=== PATIENT | male | born 1940 | race African-American/Black ===

== ENCOUNTER 2016-07-14 18:42 | Inpatient (IN) | payer OTHER, MEDICARE ==
[2016-07-14] MEDS ORDERED: SODIUM CHLORIDE 0.9% 1000 ML INFUS.BAG IV ONE (19:29)
--- NOTE | 2016-07-14 19:29 | PDOC ---
History of Present Illness - General History Source: Family <Angel Singletary - Last Filed: 07/14/16 22:24> - General History Source: Patient, Family Exam Limitations: No Limitations - History of Present Illness Initial Comments: 07/14/16 19:38 The patient is a 76 year old male with significant past medical history of hypertension and diabetes who presents to the ED with AMD prior to arrival. As per family member, at bedside, patients last known well was earlier this morning. However, later on the evening, patient was found on the floor and appeared confused. Upon arrival, patients vitals were checked and he was found to have a temp of 103.1. At time of evaluation, patient appears to be awake, alert, and answering questions slowly, but appropriately and states he does not have any complaints. The patient denies chills, cough, SOB, chest pain, and palpitations. The patient denies abdominal pain, nausea, vomiting, and diarrhea. Allergies: NKDA Social History: No alcohol, tobacco, or drug use reported. Past Surgical History: None reported PCP: Dr. Boogie Sterling <Cassie Cuellar - Last Filed: 07/15/16 04:06> - General Chief Complaint: SIRS, Suspected/Possible Stated Complaint: FALL/AMS Time Seen by Provider: 07/14/16 19:26 Past History - Past Medical History Diabetes: Yes (niddm) HTN: Yes - Psycho/Social/Smoking Cessation Hx Anxiety: No Suicidal Ideation: No Smoking History: Never smoked Have you smoked in the past 12 months: No Information on smoking cessation initiated: No Hx Alcohol Use: No Drug/Substance Use Hx: No Substance Use Type: None <Angel Singletary - Last Filed: 07/14/16 22:24> <Cassie Cuellar - Last Filed: 07/15/16 04:06> - Past Medical History Allergies/Adverse Reactions: Allergies Allergy/AdvReac Type Severity Reaction Status Date / Time No Known Allergies Allergy Verified 07/14/16 18:49 Home Medications: Ambulatory Orders Atenolol [Tenormin -] 100 mg PO DAILY 07/15/16 Furosemide [Lasix] 40 mg PO DAILY 07/15/16 Nefazodone HCl 30 mg PO DAILY 07/15/16 Review of Systems - Review of Systems Able to Perform ROS?: Yes Comments:: 07/14/16 19:38 CONSTITUTIONAL: +fever Absent: no chills, no fatigue EYES: Absent: visual changes ENT: Absent: ear pain, no sore throat CARDIOVASCULAR: Absent: chest pain, no palpitations RESPIRATORY: Absent: cough, no SOB GI: Absent: abdominal pain, no nausea, no vomiting, no constipation, no diarrhea GENITOURINARY: Absent: dysuria, no frequency, no hematuria MUSKULOSKELETAL: Absent: back pain, no arthralgia, no myalgia SKIN: Absent: rash NEURO: +AMS Absent: headache <Cassie Cuellar - Last Filed: 07/15/16 04:06> *Physical Exam - Vital Signs Last Vital Signs Temp Pulse Resp BP Pulse Ox 103.1 F H 90 18 151/92 95 07/14/16 18:51 07/14/16 18:51 07/14/16 18:51 07/14/16 18:51 07/14/16 18:51 <Angel Singletary - Last Filed: 07/14/16 22:24> - Vital Signs Last Vital Signs Temp Pulse Resp BP Pulse Ox 103.1 F H 90 18 151/92 95 07/14/16 18:51 07/14/16 18:51 07/14/16 18:51 07/14/16 18:51 07/14/16 18:51 - Physical Exam Comments: 07/14/16 19:38 GENERAL: Well-appearing, well-nourished. No apparent distress. HEENT: Normocephalic, atraumatic. No racoon or kelly sign. PERRL, EOM intact. No hemotympanum. CARDIOVASCULAR: Normal S1, S2. Regular rate and rhythm. PULMONARY: Clear to auscultation bilaterally. ABDOMEN: Soft, non-distended, non-tender. EXTREMITIES: Normal ROM in all four extremities. No gross deformities. SKIN: Warm, dry. No rash NEUROLOGICAL: Pt is awake, alert, and answering questions slowly, but appropriately. No gross focal neurological deficits. <PoloCassie - Last Filed: 07/15/16 04:06> Heart Score/ECG Review - ECG Impressions Comment:: 07/15/16 04:05 Sinus rhythm with sinus arrhythmia with 1st degree AV block @69bpm Left anterior fascicular block Voltage criteria for left ventricular hypertrophy Abnormal ECG <Cassie Cuellar - Last Filed: 07/15/16 04:06> ED Treatment Course - LABORATORY CBC & Chemistry Diagram: 07/14/16 19:30 07/14/16 19:30 <Angel Singletary - Last Filed: 07/14/16 22:24> - LABORATORY CBC & Chemistry Diagram: 07/14/16 19:30 07/14/16 19:30 <Cassie Cuellar - Last Filed: 07/15/16 04:06> Medical Decision Making - Medical Decision Making 07/14/16 22:24 Dr. Singletary: The scribe's documentation has been prepared under my direction and personally reviewed by me in its entirery. I confirm that the note above accurately reflects all work, treatment, procedures, and medical decision making performed by me. Pt [facility] be [facility]. Spoke to Dr. Cronin for Dr Kelvin Sterling <Angel Singletary - Last Filed: 07/14/16 22:24> - Medical Decision Making 07/14/16 22:[address] Maribell Cronin covering for Boogie Sterling (via answering service) at 22:18 Awaiting call back Patient's case was discussed with Dr. Cronin at 22:20 <Cassie Cuellar - Last Filed: 07/15/16 04:06> *DC/Admit/Observation/Transfer - Discharge Dispostion Admit: Yes <Angel Singletary - Last Filed: 07/14/16 22:24> - Attestations Scribe Attestion: 07/14/16 19:38 Documentation prepared by Cassie Cuellar, acting as medical stenographer for Angel Singletary MD <Cassie Cuellar - Last Filed: 07/15/16 04:06> Diagnosis at time of Disposition: Influenza A Change in mental status Qualifiers: Altered mental status type: unspecified Qualified Code(s): R41.82 - Altered mental status, unspecified - Referrals
[2016-07-14] MEDS ORDERED: ACETAMINOPHEN 1000 MG/100 ML VIAL (NON FORMULARY) IVPB ONE (19:30)
[2016-07-14] MEDS ORDERED: ACETAMINOPHEN INJECTION 100 ML IVPB ONE (19:49)
[2016-07-14 19:50] LABS: VENOUS PH 7.41 (7.31-7.41)
[2016-07-14 19:53] LABS: RDW 14.6 % (11.9-15.9)
[2016-07-14 19:59] LABS: MCH 30.3 pg (25.7-33.7); MCHC 33.2 g/dl (32.0-35.9); MEAN CELL VOLUME 91.1 fl (80-96); MEAN PLT VOLUME 9.5 fl (7.5-11.1); PLATELET COUNT 133 K/MM3 (134-434); WHITE BLOOD COUNT 5.6 K/mm3 (4.0-10.0)
[2016-07-14 20:06] LABS: INR 1.11 (0.82-1.09); PROTHROMBIN TIME (PATIENT) 12.2 SEC (9.98-11.88)
[2016-07-14 20:28] LABS: ALBUMIN 3.8 g/dl (3.4-5.0); BILIRUBIN,TOTAL 0.7 mg/dL (0.2-1.0); CALCIUM 8.9 mg/dL (8.5-10.1); CREATININE 2.3 mg/dL (0.7-1.3); TOT PROT 7.4 g/dl (6.4-8.2)
[2016-07-14 20:30] LABS: TROPONIN I 0.04 ng/ml (0.00-0.05)
[2016-07-14] MEDS ORDERED: OSELTAMIVIR PHOSPHATE 75 MG CAPSULE PO ONE (20:35)
[2016-07-14 20:49] LABS: PLATELET COMMENT2 NO CLUMPING NOTED; PLATELET ESTIMATE DECREASED (NORMAL)
[2016-07-14] MEDS ORDERED: OSELTAMIVIR PHOSPHATE 75 MG CAPSULE ONE (21:04)
[2016-07-14] MEDS ORDERED: ALBUTEROL SO4 0.083% IH SOL 2.5 MG/3 ML VIAL.NEB. NEB PRN (22:49)
[2016-07-14] MEDS ORDERED: ACETAMINOPHEN 325 MG TABLET (FP) PO PRN (22:52)
[2016-07-14] MEDS ORDERED: SODIUM CHLORIDE 0.45% 1,000 ML IV SCH (23:00)
[2016-07-15] MEDS ORDERED: KETOROLAC TROMETHAMINE 30 MG/1 ML VIAL IVPUSH ONE (00:04)
[2016-07-15] MEDS ORDERED: KETOROLAC TROMETHAMINE 30 MG/1 ML VIAL ONE (00:06)
[2016-07-15] MEDS ORDERED: ACETAMINOPHEN 1000 MG/100 ML VIAL (NON FORMULARY) IVPB ONE ×2 (05:19→17:01)
[2016-07-15] MEDS ORDERED: ACETAMINOPHEN INJECTION 100 ML IVPB ONE ×2 (05:20→17:02)
[2016-07-15 05:37] LABS: BASOPHIL 1.9 % (0-2.0); EOSINOPHIL 0.6 % (0-4.5); MCH 30.4 pg (25.7-33.7); MEAN CELL VOLUME 92.3 fl (80-96); MEAN PLT VOLUME 9.2 fl (7.5-11.1); NEUTROPHILS 62.8 % (42.8-82.8); PLATELET COUNT 102 K/MM3 (134-434); WHITE BLOOD COUNT 4.5 K/mm3 (4.0-10.0)
[2016-07-15 06:00] LABS: ALBUMIN 3.4 g/dl (3.4-5.0); BILIRUBIN,TOTAL 0.7 mg/dL (0.2-1.0); CALCIUM 8.3 mg/dL (8.5-10.1); CREATININE 2.2 mg/dL (0.7-1.3); TOT PROT 6.5 g/dl (6.4-8.2)
[2016-07-15 08:10] LABS: URINE APPEARANCE CLEAR; URINE BILIRUBIN NEGATIVE (NEGATIVE); URINE COLOR LTYELLOW; URINE GLUCOSE (UA) NEGATIVE (NEGATIVE); URINE KETONE NEGATIVE (NEGATIVE); URINE LEUK ESTERASE NEGATIVE (NEGATIVE); URINE NITRITE NEGATIVE (NEGATIVE); URINE UROBILINOGEN NEGATIVE E.U./dl (0.2-1.0)
[2016-07-15 08:16] LABS: URINE BLOOD 1+ (NEGATIVE); URINE PROTEIN 1+ (NEGATIVE)
[2016-07-15 08:18] LABS: URINE HYALINE CAST 1 /lpf; URINE MUCUS RARE; URINE RBC <1 /hpf (0-3); URINE WBC <1 /hpf (3-5)
[2016-07-15] MEDS: ATENOLOL 50 MG TABLET (FP) PO SCH (09:06)
[2016-07-15] MEDS: NIFEdipine E.R 60 MG TABLET (UD) PO SCH (09:06)
--- NOTE | 2016-07-15 09:08 | HP ---
Admitting History and Physical - Primary Care Physician PCP: Boogie Sterling - Admission Chief Complaint: AMS, cough, fever, syncope History of Present Illness: ER HISTORY - - History of Present Illness Initial Comments: 07/14/16 19:38 The patient is a 76 year old male with significant past medical history of hypertension and diabetes who presents to the ED with AMS prior to arrival. As per family member, at bedside, patients last known well was earlier this morning. However, later on the evening, patient was found on the floor and appeared confused. Upon arrival, patients vitals were checked and he was found to have a temp of 103.1. At time of evaluation, patient appears to be awake, alert, and answering questions slowly, but appropriately and states he does not have any complaints. Pt examined by me in the ER- ID also with me- Known from the office. -76 yrs old male brought in for AMS, confusion, syncope- he was found on the floor last night- states that he hasn't been feeling well for two days-- had body aches, coughing persistently.When he went to the bathroom yesterday in the afternoon, he passed out. Pt is able to give history-- he does not remember how long he was on the floor- his nephew found him on the floor confused and brought him to the ER. Pt states he has runny nose , body aches x 2 days. States that his nephew had a cold before. He was seen in the office 05/27/16 for similar complaints and at office rapid flu test was positive and was started on Tamiflu- pt denies ever being told he had the Flu and also he denies taking medications for the flu even though it is documented that it was prescribed and he came about a week later for follow up . No chest pain ,has poor appetite, no diarrhea History Source: Patient Limitations to Obtaining History: No Limitations - Past Medical History Cardiovascular: Yes: HTN - Smoking History Smoking history: Never smoked Have you smoked in the past 12 months: No - Alcohol/Substance Use Hx Alcohol Use: No - Social History Usual Living Arrangement: Yes: Alone, Other ( in [place]) ADL: Independent History of Recent Travel: No Home Medications - Allergies Allergies/Adverse Reactions: Allergies Allergy/AdvReac Type Severity Reaction Status Date / Time No Known Allergies Allergy Verified 07/14/16 18:49 - Home Medications Home Medications: Ambulatory Orders Atenolol [Tenormin -] 100 mg PO DAILY 07/15/16 Furosemide [Lasix] 40 mg PO DAILY 07/15/16 Nefazodone HCl 30 mg PO DAILY 07/15/16 Review of Systems - Review of Systems Constitutional: reports: Chills, Fever, Loss of Appetite, Weakness Cardiovascular: denies: Chest Pain, Edema, Palpitations, Shortness of Breath Respiratory: reports: Cough Physical Examination Vital Signs: Vital Signs Temperature 98.4 F 07/15/16 09:05 Pulse Rate 74 07/15/16 09:05 Respiratory Rate 18 07/15/16 09:05 Blood Pressure 157/87 07/15/16 09:05 O2 Sat by Pulse Oximetry (%) 97 07/15/16 09:05 Constitutional: Yes: No Distress, Calm HENT: Yes: Other (oral moist) Cardiovascular: Yes: Regular Rate and Rhythm Respiratory: Yes: Diminished Gastrointestinal: Yes: Normal Bowel Sounds, Soft. No: Distention, Tenderness Extremities: Yes: Other (skin dry) Edema: No Neurological: Yes: Alert, Oriented Psychiatric: Yes: Alert, Oriented (answers questions appropriately) Labs: CBC, BMP 07/15/16 05:00 07/15/16 05:00 Imaging - Results Chest X-ray: Image Reviewed (no infilatrate) Cat Scan: Report Reviewed (CT head--negative) EKG: Image Reviewed (NSR, no ST changes) Problem List - Problems (1) Change in mental status Code(s): R41.82 - ALTERED MENTAL STATUS, UNSPECIFIED Qualifiers: Altered mental status type: unspecified Qualified Code(s): R41.82 - Altered mental status, unspecified (2) Influenza A Code(s): J10.1 - FLU DUE TO OTH IDENT INFLUENZA VIRUS W OTH RESP MANIFEST (3) Acute on chronic renal failure Code(s): N17.9 - ACUTE KIDNEY FAILURE, UNSPECIFIED N18.9 - CHRONIC KIDNEY DISEASE, UNSPECIFIED (4) HTN (hypertension) Code(s): I10 - ESSENTIAL (PRIMARY) HYPERTENSION Qualifiers: Hypertension type: essential hypertension Qualified Code(s): I10 - Essential (primary) hypertension Assessment/Plan PLAN -- unknown if pt did take Tamiflu in May -- pt started on tamiflu here -- discussed the case with ID -- droplet precautions -- IV fluids-- pt's baseline creatinine 1.6. -- hold off Lasix -- denies NSAID use -- iv fluids-- repeat lactate is normal -- monitor BUN/creatinine -- check renal sono -- continue meds for HTN -- pt syncopized likely due to dehydration -- DVT prophylaxis-- Heparin sc
--- NOTE | 2016-07-15 09:36 | PN ---
Progress Note (short form) - Note Progress Note: ID consult dictated imp/reccd 76 year old man admitted with acute onset of cough and nasal congestion on Wednesday night, Wednesday he felt extremely weak with continued cough and malaise, he remembers using the bathroom in the evening , then became extremely weak and sat on the floor. He is not sure if he had LOC His grandson (who has a cold) found him on the floor confused and called the ambulance temp of 103 i ED awake and alert no other complaints besides cough influenza A positive influenza A droplet isolation tamiflu adjusted for CKD d/w Dr Cronin
[2016-07-15] MEDS ORDERED: OSELTAMIVIR PHOSPHATE 75 MG CAPSULE PO SCH (10:00)
[2016-07-15] MEDS: OSELTAMIVIR PHOSPHATE 30 MG CAPSULE PO SCH ×2 (10:10→22:34)
[2016-07-15] MEDS: SODIUM CHLORIDE 0.45% 1,000 ML IV SCH (12:20)
--- NOTE | 2016-07-15 13:46 | CONS ---
DATE OF CONSULTATION: DATE OF DICTATION: 07/15/2016 REQUESTING PHYSICIAN: HISTORY OF PRESENT ILLNESS: This is a 76-year-old man with a past medical history of hypertension and diabetes. The patient was found by his grandson yesterday evening on the floor in his bedroom, and he appeared confused. EMS was called, and he was brought to the emergency room where he had a temperature of 103.1. By the time he got to the emergency room, he was awake and alert and answering questions slowly, but appropriately and did not have any complaints. He had blood cultures drawn, his labs were notable for a normal white count, he had no other complaints, and his influenza A screen was positive. On further questioning this morning, he reports that from the prior evening, he developed sudden onset of nasal congestion and cough. He said he had this nonproductive cough and could not stop coughing all night. The next morning when he awoke, which was yesterday morning, he was extremely weak and fatigued. He went to use the bathroom in the evening, and returning back to his room, he essentially could not make it from the weakness and was found on the floor by his son. He has no other memories of the event. He denies any nausea, vomiting, diarrhea, or dysuria. There is no history of any travel. His grandson, who lives with him, has recently had a cold. ALLERGIES: He has no known drug allergies. MEDICATIONS: He takes atenolol, Lasix, and nefazodone as an outpatient. FAMILY HISTORY: Noncontributory. SOCIAL HISTORY: He is . His is currently down in [place]. He did not go to visit her. 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 He is a nonsmoker. REVIEW OF SYSTEMS: He denies fevers and chills, although he had fever in the emergency room. He does note this cough and he has nasal congestion. PAST MEDICAL HISTORY: Notable for diabetes and hypertension. SURGICAL HISTORY: Is negative. PHYSICAL EXAMINATION: Vital signs: Maximum temperature was 103.1, current temperature is 98.4, pulse is 74, blood pressure 157/87, respiratory rate 18, he is saturating 97% on room air. HEENT: He is normocephalic. His eyes are anicteric. He has some mild conjunctivitis and nasal congestion. He has no pharyngitis. Neck: Supple. Lungs: Clear to auscultation. Heart: Regular rate and rhythm. Abdomen: Soft, nontender. Extremities: Without edema. LABORATORIES: White count last night was 5.6, this morning is 4.5, hemoglobin 12, platelets 102. INR 1. BUN 24, creatinine 2.2, lactic acid 2.3 and repeat is 1.9. Liver function tests were normal. Urinalysis negative. Blood cultures are pending . Positive legionella antigen. Head CT is negative, and chest x-ray shows no infiltrate. SUMMARY: This is a 76-year-old man with influenza A. He has been started on Tamiflu. Adjust it for his chronic kidney disease. Would maintain droplet isolation at this time and gentle hydration as the patient states that he has no appetite and is not eating well. Queenie [id number]
[2016-07-15 19:10] VITALS: BMI 33.0
[2016-07-15] MEDS: HEPARIN NA (PORCINE) 5,000 UNITS/ML 1ML VIAL SQ SCH (22:33)
--- NOTE | 2016-07-16 00:32 | EKG ---
Test Reason : Blood Pressure : / mmHG Vent. Rate : 069 BPM Atrial Rate : 069 BPM P-R Int : 328 ms QRS Dur : 114 ms QT Int : 414 ms P-R-T Axes : 048 -47 -07 degrees QTc Int : 443 ms SINUS RHYTHM WITH SINUS ARRHYTHMIA WITH 1ST DEGREE A-V BLOCK LEFT ANTERIOR FASCICULAR BLOCK VOLTAGE CRITERIA FOR LEFT VENTRICULAR HYPERTROPHY WITH REPOLARIZATION ABNORMALITY ABNORMAL ECG WHEN COMPARED WITH ECG OF 24-OCT-2010 19:45, T WAVE INVERSION NOW EVIDENT IN INFERIOR LEADS T WAVE INVERSION NOW EVIDENT IN LATERAL LEADS Confirmed by SIDNEY SHEPHERD MD ([id number]) on 07/16/2016 12:31:41 AM Referred By: Confirmed By:SIDNEY SHEPHERD MD
[2016-07-16] MEDS: SODIUM CHLORIDE 0.45% 1,000 ML IV SCH ×3 (07:02→18:25)
[2016-07-16 09:03] LABS: CALCIUM 8.4 mg/dL (8.5-10.1); CREATININE 1.7 mg/dL (0.7-1.3)
--- NOTE | 2016-07-16 10:17 | PN ---
Progress Note, Physician Chief Complaint: ID Ill appearing but NAD Coughing Febrile 101 but may be on the way down - Current Medication List Current Medications: Active Medications Acetaminophen (Tylenol -) 650 mg PO Q6H PRN PRN Reason: FEVER Last Admin: 07/15/16 22:34 Dose: 650 mg Albuterol Sulfate (Ventolin 0.083% Nebulizer Soln -) 1 amp NEB Q8H PRN PRN Reason: SHORT OF BREATH/WHEEZING Atenolol (Tenormin -) 100 mg PO DAILY [facility] Last Admin: 07/15/16 09:06 Dose: 100 mg Heparin Sodium (Porcine) (Heparin -) 5,000 unit SQ BID [facility] Last Admin: 07/15/16 22:33 Dose: 5,000 unit Sodium Chloride (1/2 Normal Saline) 1,000 mls @ 100 mls/hr IV ASDIR [facility] Last Admin: 07/16/16 07:02 Dose: 100 mls/hr Nifedipine (Procardia Xl -) 60 mg PO DAILY [facility] Last Admin: 07/15/16 09:06 Dose: 60 mg Oseltamivir Phosphate (Tamiflu -) 30 mg PO BID [facility] Stop: 07/19/16 10:01 Last Admin: 07/15/16 22:34 Dose: 30 mg - Objective Vital Signs: Vital Signs Temperature 99.2 F 07/16/16 06:00 Pulse Rate 64 07/16/16 06:00 Respiratory Rate 22 07/16/16 06:00 Blood Pressure 162/92 07/16/16 06:00 O2 Sat by Pulse Oximetry (%) 98 07/15/16 18:13 Constitutional: Yes: Other (Ill appearing) Neck: Yes: WNL, Supple Cardiovascular: Yes: Regular Rate and Rhythm, S1, S2 Respiratory: Yes: Rales (few rales) Gastrointestinal: Yes: WNL, Normal Bowel Sounds, Soft. No: Tenderness Edema: No Labs: CBC, BMP 07/15/16 05:00 07/16/16 06:15 INR, PTT INR 1.11 (0.82-1.09) 07/14/16 19:30 Assessment/Plan Microbiology 07/15/16 07:20 Urine - Urine Clean Catch Urine Culture - Final NO GROWTH OBTAINED 07/14/16 19:30 Nasopharyngeal Swab Influenza Types A,B Antigen (JENN) - Final 07/14/16 19:30 Nasopharyngeal Swab - Final 07/14/16 19:30 Blood - Peripheral Venous Blood Culture - Preliminary NO GROWTH OBTAINED AFTER 24 HOURS, INCUBATION TO CONTINUE FOR 4 DAYS. 07/14/16 19:30 Blood - Peripheral Venous Blood Culture - Preliminary NO GROWTH OBTAINED AFTER 24 HOURS, INCUBATION TO CONTINUE FOR 4 DAYS. Laboratory Tests 07/14/16 07/14/16 07/15/16 19:30 22:29 05:00 WBC 4.5 Hgb 12.0 D Hct 36.4 Plt Count 102 L D BUN Creatinine Lactic Acid 2.304 H* 1.995 07/16/16 06:15 WBC Hgb Hct Plt Count BUN 19 H D Creatinine 1.7 H D Lactic Acid Assessment Influenza with ARF gradual improvement Plan Continue Tamiflu IVF Markus YOUNG
[2016-07-16] MEDS ORDERED: PT OWN MED DRAWER 7, Y5N ONE (10:34)
[2016-07-16] MEDS: OSELTAMIVIR PHOSPHATE 30 MG CAPSULE PO SCH ×2 (10:37→21:38)
[2016-07-16] MEDS: NIFEdipine E.R 60 MG TABLET (UD) PO SCH (10:37)
[2016-07-16] MEDS: HEPARIN NA (PORCINE) 5,000 UNITS/ML 1ML VIAL SQ SCH ×2 (10:37→21:38)
[2016-07-16] MEDS: ATENOLOL 50 MG TABLET (FP) PO SCH (10:37)
--- NOTE | 2016-07-16 12:46 | PN ---
Progress Note, Physician Chief Complaint: coughing, gets SOB at times, no body aches Fever+ - Current Medication List Current Medications: Active Medications Acetaminophen (Tylenol -) 650 mg PO Q6H PRN PRN Reason: FEVER Last Admin: 07/15/16 22:34 Dose: 650 mg Albuterol Sulfate (Ventolin 0.083% Nebulizer Soln -) 1 amp NEB Q8H PRN PRN Reason: SHORT OF BREATH/WHEEZING Atenolol (Tenormin -) 100 mg PO DAILY [facility] Last Admin: 07/16/16 10:37 Dose: 100 mg Heparin Sodium (Porcine) (Heparin -) 5,000 unit SQ BID [facility] Last Admin: 07/16/16 10:37 Dose: 5,000 unit Sodium Chloride (1/2 Normal Saline) 1,000 mls @ 100 mls/hr IV ASDIR [facility] Last Admin: 07/16/16 10:37 Dose: Not Given Nifedipine (Procardia Xl -) 60 mg PO DAILY [facility] Last Admin: 07/16/16 10:37 Dose: 60 mg Oseltamivir Phosphate (Tamiflu -) 30 mg PO BID [facility] Stop: 07/19/16 10:01 Last Admin: 07/16/16 10:37 Dose: 30 mg - Objective Vital Signs: Vital Signs Temperature 99.2 F 07/16/16 06:00 Pulse Rate 64 07/16/16 06:00 Respiratory Rate 22 07/16/16 06:00 Blood Pressure 162/92 07/16/16 06:00 O2 Sat by Pulse Oximetry (%) 98 07/15/16 18:13 Constitutional: Yes: No Distress Cardiovascular: Yes: Regular Rate and Rhythm Respiratory: Yes: Diminished, Rhonchi Gastrointestinal: Yes: Normal Bowel Sounds, Soft, Abdomen, Obese. No: Distention, Tenderness Edema: No Labs: CBC, BMP 07/15/16 05:00 07/16/16 06:15 INR, PTT INR 1.11 (0.82-1.09) 07/14/16 19:30 Problem List - Problems (1) Change in mental status Code(s): R41.82 - ALTERED MENTAL STATUS, UNSPECIFIED Qualifiers: Altered mental status type: unspecified Qualified Code(s): R41.82 - Altered mental status, unspecified (2) Influenza A Code(s): J10.1 - FLU DUE TO OTH IDENT INFLUENZA VIRUS W OTH RESP MANIFEST (3) Acute on chronic renal failure Code(s): N17.9 - ACUTE KIDNEY FAILURE, UNSPECIFIED N18.9 - CHRONIC KIDNEY DISEASE, UNSPECIFIED (4) HTN (hypertension) Code(s): I10 - ESSENTIAL (PRIMARY) HYPERTENSION Qualifiers: Hypertension type: essential hypertension Qualified Code(s): I10 - Essential (primary) hypertension Assessment/Plan PLAN -- continue tamiflu -- droplet precautions -- IV fluids-- pt's baseline creatinine 1.6. --Lasix on hold -- increase procardia-- BP not controlled -- monitor BUN/creatinine -- renal and bladder sono noted -- DVT prophylaxis-- Heparin sc -- OOB -- nebs as needed
[2016-07-16] MEDS ORDERED: ALBUTEROL SO4 0.083% IH SOL 2.5 MG/3 ML VIAL.NEB. NEB PRN (13:27)
[2016-07-17] MEDS: SODIUM CHLORIDE 0.45% 1,000 ML IV SCH ×4 (03:11→23:12)
--- NOTE | 2016-07-17 08:35 | PN ---
Progress Note (short form) - Note Progress Note: Subjective Patient seen and examined. Chart reviewed. feeling better but still weak cough present denies cp reports eating better Objective Last Vital Signs Temp Pulse Resp BP Pulse Ox 98.2 F 61 19 139/82 98 07/17/16 09:04 07/17/16 09:04 07/17/16 09:04 07/17/16 09:04 07/16/16 21:00 Problem List - Problems (1) Change in mental status Code(s): R41.82 - ALTERED MENTAL STATUS, UNSPECIFIED Qualifiers: Altered mental status type: unspecified Qualified Code(s): R41.82 - Altered mental status, unspecified (2) Influenza A Code(s): J10.1 - FLU DUE TO OTH IDENT INFLUENZA VIRUS W OTH RESP MANIFEST (3) Acute on chronic renal failure Code(s): N17.9 - ACUTE KIDNEY FAILURE, UNSPECIFIED N18.9 - CHRONIC KIDNEY DISEASE, UNSPECIFIED (4) HTN (hypertension) Code(s): I10 - ESSENTIAL (PRIMARY) HYPERTENSION Qualifiers: Hypertension type: essential hypertension Qualified Code(s): I10 - Essential (primary) hypertension Labs: CBC, BMP 07/15/16 05:00 07/17/16 06:30 Physical Exam Constitutional: Yes: No Distress Cardiovascular: Yes: Regular Rate and Rhythm Respiratory: Yes: Diminished, Rhonchi scattered Gastrointestinal: Yes: Normal Bowel Sounds, Soft, Abdomen, Obese. No: Distention, Tenderness Edema: No Assessment and Plan -- continue tamiflu -- droplet precautions -- IV fluids-- pt's baseline creatinine 1.6. --Lasix on hold -- DVT prophylaxis-- Heparin sc -- OOB -- nebs as needed -- daily out of bed chair -- continue mild hydration -- discharge in 1-2 days likely if continue to improve Documentation prepared by Jenny Marks, acting as a medical imaging technician for Boogie Sterling MD.
[2016-07-17 09:03] LABS: CALCIUM 7.8 mg/dL (8.5-10.1); CREATININE 1.4 mg/dL (0.7-1.3)
[2016-07-17] MEDS: HEPARIN NA (PORCINE) 5,000 UNITS/ML 1ML VIAL SQ SCH ×2 (10:26→22:09)
[2016-07-17] MEDS: ATENOLOL 50 MG TABLET (FP) PO SCH (10:27)
[2016-07-17] MEDS: OSELTAMIVIR PHOSPHATE 30 MG CAPSULE PO SCH (10:27)
[2016-07-17] MEDS: NIFEdipine E.R. 90 MG TABLET (FP) PO SCH (10:27)
--- NOTE | 2016-07-17 16:52 | PN ---
Progress Note (short form) - Note Progress Note: feel much better no fevers +cough Vital Signs Period Temp Pulse Resp BP Sys/San Pulse Ox Last 24 Hr 98.0 F-98.7 F 55-66 16-20 123-160/75-89 95-98 cor-rrr lungs scattered rhonchi abd soft,nt ext no edema CBC, BMP 07/15/16 05:00 07/17/16 06:30 Microbiology 07/14/16 19:30 Blood - Peripheral Venous Blood Culture - Preliminary NO GROWTH OBTAINED AFTER 48 HOURS, INCUBATION TO CONTINUE FOR 3 DAYS. 07/14/16 19:30 Blood - Peripheral Venous Blood Culture - Preliminary NO GROWTH OBTAINED AFTER 48 HOURS, INCUBATION TO CONTINUE FOR 3 DAYS. 07/15/16 07:20 Urine - Urine Clean Catch Urine Culture - Final NO GROWTH OBTAINED 07/14/16 19:30 Nasopharyngeal Swab Influenza Types A,B Antigen (JENN) - Final 07/14/16 19:30 Nasopharyngeal Swab - Final a/p influenza A renal insufficiency resolving tamiflu increased to 75 bid for remaining doses doing well afebrile please call back if needed
[2016-07-17] MEDS: OSELTAMIVIR PHOSPHATE 75 MG CAPSULE PO SCH (22:08)
[2016-07-18] MEDS: SODIUM CHLORIDE 0.45% 1,000 ML IV SCH (07:13)
[2016-07-18] MEDS: HEPARIN NA (PORCINE) 5,000 UNITS/ML 1ML VIAL SQ SCH ×2 (09:54→22:15)
[2016-07-18] MEDS: OSELTAMIVIR PHOSPHATE 75 MG CAPSULE PO SCH ×2 (09:54→22:15)
[2016-07-18] MEDS: ATENOLOL 50 MG TABLET (FP) PO SCH (09:54)
[2016-07-18] MEDS: NIFEdipine E.R. 90 MG TABLET (FP) PO SCH (09:55)
--- NOTE | 2016-07-18 12:46 | PN ---
Progress Note, Physician Chief Complaint: no distress feels better - Current Medication List Current Medications: Active Medications Acetaminophen (Tylenol -) 650 mg PO Q6H PRN PRN Reason: FEVER Last Admin: 07/15/16 22:34 Dose: 650 mg Albuterol Sulfate (Ventolin 0.083% Nebulizer Soln -) 1 amp NEB Q6H PRN PRN Reason: SHORT OF BREATH/WHEEZING Last Admin: 07/16/16 14:31 Dose: 1 amp Atenolol (Tenormin -) 100 mg PO DAILY [facility] Last Admin: 07/18/16 09:54 Dose: 100 mg Heparin Sodium (Porcine) (Heparin -) 5,000 unit SQ BID [facility] Last Admin: 07/18/16 09:54 Dose: 5,000 unit Sodium Chloride (1/2 Normal Saline) 1,000 mls @ 100 mls/hr IV [facility] Last Admin: 07/18/16 07:13 Dose: 100 mls/hr Nifedipine (Procardia Xl -) 90 mg PO DAILY [facility] Last Admin: 07/18/16 09:55 Dose: 90 mg Oseltamivir Phosphate (Tamiflu -) 75 mg PO BID [facility] Stop: 07/19/16 22:01 Last Admin: 07/18/16 09:54 Dose: 75 mg - Objective Vital Signs: Vital Signs Temperature 98.2 F 07/18/16 06:00 Pulse Rate 53 L 07/18/16 06:00 Respiratory Rate 20 07/18/16 06:00 Blood Pressure 164/86 07/18/16 06:00 O2 Sat by Pulse Oximetry (%) 96 07/17/16 21:00 Constitutional: Yes: No Distress Cardiovascular: Yes: Regular Rate and Rhythm Respiratory: Yes: Diminished, Rhonchi (decreased) Gastrointestinal: Yes: Normal Bowel Sounds, Soft. No: Distention, Tenderness Edema: No Labs: CBC, BMP 07/15/16 05:00 07/17/16 06:30 INR, PTT INR 1.11 (0.82-1.09) 07/14/16 19:30 Problem List - Problems (1) Change in mental status Code(s): R41.82 - ALTERED MENTAL STATUS, UNSPECIFIED Qualifiers: Altered mental status type: unspecified Qualified Code(s): R41.82 - Altered mental status, unspecified (2) Influenza A Code(s): J10.1 - FLU DUE TO OTH IDENT INFLUENZA VIRUS W OTH RESP MANIFEST (3) Acute on chronic renal failure Code(s): N17.9 - ACUTE KIDNEY FAILURE, UNSPECIFIED N18.9 - CHRONIC KIDNEY DISEASE, UNSPECIFIED (4) HTN (hypertension) Code(s): I10 - ESSENTIAL (PRIMARY) HYPERTENSION Qualifiers: Hypertension type: essential hypertension Qualified Code(s): I10 - Essential (primary) hypertension Assessment/Plan complete Tamiflu pt improving nebs as needed
[2016-07-19] MEDS: HEPARIN NA (PORCINE) 5,000 UNITS/ML 1ML VIAL SQ SCH ×2 (09:59→22:06)
[2016-07-19] MEDS: NIFEdipine E.R. 90 MG TABLET (FP) PO SCH (10:00)
[2016-07-19] MEDS: OSELTAMIVIR PHOSPHATE 75 MG CAPSULE PO SCH ×2 (10:00→22:06)
[2016-07-19] MEDS: ATENOLOL 50 MG TABLET (FP) PO SCH (10:00)
--- NOTE | 2016-07-19 11:26 | PN ---
Progress Note, Physician Chief Complaint: No SOB Feels better - Current Medication List Current Medications: Active Medications Acetaminophen (Tylenol -) 650 mg PO Q6H PRN PRN Reason: FEVER Last Admin: 07/15/16 22:34 Dose: 650 mg Albuterol Sulfate (Ventolin 0.083% Nebulizer Soln -) 1 amp NEB Q6H PRN PRN Reason: SHORT OF BREATH/WHEEZING Last Admin: 07/16/16 14:31 Dose: 1 amp Atenolol (Tenormin -) 100 mg PO DAILY [facility] Last Admin: 07/19/16 10:00 Dose: 100 mg Heparin Sodium (Porcine) (Heparin -) 5,000 unit SQ BID [facility] Last Admin: 07/19/16 09:59 Dose: 5,000 unit Nifedipine (Procardia Xl -) 90 mg PO DAILY [facility] Last Admin: 07/19/16 10:00 Dose: 90 mg Oseltamivir Phosphate (Tamiflu -) 75 mg PO BID [facility] Stop: 07/19/16 22:01 Last Admin: 07/19/16 10:00 Dose: 75 mg - Objective Vital Signs: Vital Signs Temperature 98.8 F 07/19/16 05:55 Pulse Rate 54 L 07/19/16 05:55 Respiratory Rate 20 07/19/16 05:55 Blood Pressure 143/75 07/19/16 05:55 O2 Sat by Pulse Oximetry (%) 96 07/18/16 21:00 Constitutional: Yes: No Distress Cardiovascular: Yes: Regular Rate and Rhythm Respiratory: Yes: Diminished, Rhonchi (occasional) Gastrointestinal: Yes: Normal Bowel Sounds, Soft. No: Distention, Tenderness Edema: No Labs: CBC, BMP 07/15/16 05:00 07/17/16 06:30 INR, PTT INR 1.11 (0.82-1.09) 07/14/16 19:30 Problem List - Problems (1) Change in mental status Code(s): R41.82 - ALTERED MENTAL STATUS, UNSPECIFIED Qualifiers: Altered mental status type: unspecified Qualified Code(s): R41.82 - Altered mental status, unspecified (2) Influenza A Code(s): J10.1 - FLU DUE TO OTH IDENT INFLUENZA VIRUS W OTH RESP MANIFEST (3) Acute on chronic renal failure Code(s): N17.9 - ACUTE KIDNEY FAILURE, UNSPECIFIED N18.9 - CHRONIC KIDNEY DISEASE, UNSPECIFIED (4) HTN (hypertension) Code(s): I10 - ESSENTIAL (PRIMARY) HYPERTENSION Qualifiers: Hypertension type: essential hypertension Qualified Code(s): I10 - Essential (primary) hypertension Assessment/Plan completing Tamiflu today pt improving nebs as needed dc plan for tomorrow
--- NOTE | 2016-07-20 08:17 | DS ---
Physical Examination Vital Signs: Vital Signs Temperature 97.6 F 07/20/16 06:34 Pulse Rate 60 07/20/16 06:34 Respiratory Rate 20 07/20/16 06:34 Blood Pressure 146/84 07/20/16 06:34 O2 Sat by Pulse Oximetry (%) 98 07/19/16 21:00 Labs: CBC, BMP 07/15/16 05:00 07/17/16 06:30 <Boogie Sterling - Last Filed: 07/20/16 08:16> Vital Signs: Vital Signs Temperature 97.6 F 07/20/16 06:34 Pulse Rate 60 07/20/16 06:34 Respiratory Rate 20 07/20/16 06:34 Blood Pressure 146/84 07/20/16 06:34 O2 Sat by Pulse Oximetry (%) 98 07/19/16 21:00 Findings/Remarks: Feels better No complaints. Denies chest pain or shortness of breath. Denies cough. Constitutional: Yes: No Distress, Calm Eyes: Yes: Conjunctiva Clear HENT: Yes: WNL Neck: Yes: Supple, Trachea Midline Cardiovascular: Yes: Regular Rate and Rhythm Respiratory: Yes: CTA Bilaterally Gastrointestinal: Yes: Soft Edema: No Psychiatric: Yes: Alert, Oriented Labs: CBC, BMP 07/15/16 05:00 07/17/16 06:30 <Chelsie Moss - Last Filed: 07/20/16 09:49> Discharge Summary Reason For Visit: INFLUENZA A / CHANGE IN MENTAL Current Active Problems Acute on chronic renal failure (Acute) Change in mental status (Acute) HTN (hypertension) (Acute) Influenza A (Acute) - Home Medications Comprehensive Discharge Medication List: Ambulatory Orders Atenolol [Tenormin -] 100 mg PO DAILY 07/15/16 Nefazodone HCl 30 mg PO DAILY 07/15/16 Albuterol 0.083% Nebulizer Layla [Ventolin 0.083% Nebulizer Soln -] 1 amp NEB Q6H PRN #30 amp 07/19/16 Nebulizer [Aeroeclipse II] 1 each MC Q6H #1 each 07/19/16 Nifedipine ER [Procardia XL -] 90 mg PO DAILY #30 tab.er.24 07/19/16 Acetaminophen [Tylenol .Regular Strength -] 650 mg PO Q6H PRN #0 tablet Atenolol [Tenormin -] 100 mg PO DAILY tablet 07/20/16 <Boogie Sterling - Last Filed: 07/20/16 08:16> Current Active Problems Acute on chronic renal failure (Acute) Change in mental status (Acute) HTN (hypertension) (Acute) Influenza A (Acute) Hospital Course: The patient is a 76-year-old gentleman with a past medical history of hypertension and diabetes. Admitted for confusion. Workup revealed acute on chronic renal insufficiency as well as Influenza A. CT head was negative. Treated with IV Fluids and Tamiflu. Now much better. Will discharge him home today. Follow up in office next week. Meds reconciled and updated. Discussed with nursing staff also. Patient is also in agreement. Documentation prepared by Chelsie Moss, acting as a spanish medical interpreter for Boogie Sterling MD - Home Medications Comprehensive Discharge Medication List: Ambulatory Orders Atenolol [Tenormin -] 100 mg PO DAILY 07/15/16 Nefazodone HCl 30 mg PO DAILY 07/15/16 Albuterol 0.083% Nebulizer Layla [Ventolin 0.083% Nebulizer Soln -] 1 amp NEB Q6H PRN #30 amp 07/19/16 Nebulizer [Aeroeclipse II] 1 each MC Q6H #1 each 07/19/16 Nifedipine ER [Procardia XL -] 90 mg PO DAILY #30 tab.er.24 07/19/16 Acetaminophen [Tylenol .Regular Strength -] 650 mg PO Q6H PRN #0 tablet Atenolol [Tenormin -] 100 mg PO DAILY tablet 07/20/16 <Chelsie Moss - Last Filed: 07/20/16 09:49> - Instructions Referrals: Boogie Sterling MD [Primary Care Provider] -
[2016-07-20] MEDS ORDERED: PT OWN MED DRAWER 7, Y5N ONE (10:43)
[2016-07-20] MEDS: ATENOLOL 50 MG TABLET (FP) PO SCH (10:49)
[2016-07-20] MEDS: HEPARIN NA (PORCINE) 5,000 UNITS/ML 1ML VIAL SQ SCH (10:50)
[2016-07-20] MEDS: NIFEdipine E.R. 90 MG TABLET (FP) PO SCH (10:50)
[2016-07-20 10:51] VITALS: BP 136/76; PULSE 68; TEMP 98.6
== END 2016-07-20 12:41 | disposition home or self-care (01) | DRG 194 ==
LOC: JER 18:42 → JERBED 22:52 → J8W 07-15 20:30
PROVIDERS: ADMIT Internal Medicine; ATTEND Internal Medicine
DX: J10.1 Influenza due to other identified influenza virus with other respiratory manifestations (principal); N17.9 Acute kidney failure, unspecified; E11.9 Type 2 diabetes mellitus without complications; I12.9 Hypertensive chronic kidney disease with stage 1 through stage 4 chronic kidney disease, or unspecified chronic kidney disease; N18.9 Chronic kidney disease, unspecified; E86.0 Dehydration
CPT/HCPCS: 36415; 70450-TC; 71010-TC; 76775-TC; 76856-TC; 80048; 80053; 81003; 81015; 82550; 82803; 83605; 84484; 85025; 85610; 85730; 86850; 86900; 86901; 87040; 87086; 87804; 93005; 93010; 94640; 99285-25; J1644